=== PATIENT | male | born 1980 | race Caucasian/White ===

== ENCOUNTER 2017-01-05 08:58 | Emergency (ER) | payer OTHER ==
--- NOTE | 2017-01-05 11:43 | RAD ---
LEFT WRIST 3 VIEWS: HISTORY: A 36-year-old male with pain and swelling after a crushing injury by a cow. FINDINGS: Prominent soft tissue swelling of the wrist, particularly on the radial and volar side. No evidence for acute fracture or dislocation. No overt opaque foreign body. IMPRESSION: Soft tissue swelling without acute fracture or dislocation. POS: [facility]
== END 2017-01-05 10:08 | disposition home or self-care (01) ==
LOC: NAV ERS 08:58
DX: S50.12XA Contusion of left forearm, initial encounter (principal); X58.XXXA Exposure to other specified factors, initial encounter

== ENCOUNTER 2021-12-13 19:24 | Emergency (ER) | payer BC, OTHER, SELFPAY ==
[2021-12-13] MEDS ORDERED: Oseltamivir 75 MG CAP ONE (19:51)
== END 2021-12-13 20:58 | disposition home or self-care (01) ==
LOC: NAV ERS 19:24
DX: J11.1 Influenza due to unidentified influenza virus with other respiratory manifestations (principal)
CPT/HCPCS: 99283

== ENCOUNTER 2022-03-11 16:07 | Emergency (ER) | payer BC ==
[2022-03-11] MEDS ORDERED: Sodium Chloride 0.9% 1,000 ML ONE (16:51)
[2022-03-11 17:23] LABS: ALT (SGPT) 26 U/L (8-55); AST (SGOT) 24 U/L (5-34); Albumin 4.3 g/dL (3.5-5.0); Alkaline Phosphatase 60 U/L (40-110); Anion Gap 16 mmol/L (10-20); BUN (Urea Nitrogen) 10 mg/dL (8.9-20.6); Bilirubin, Total 1.9 mg/dL (0.2-1.2); CK (CPK) 679 U/L (30-200); Calc. Creatinine Clearance 0 mL/min (70-130); Calcium 9.4 mg/dL (7.8-10.44); Carbon Dioxide 24 mmol/L (22-29); Chloride 105 mmol/L (98-107); Globulin 2.8 g/dL (2.4-3.5); Glucose 100 mg/dL (70-105); Lipase 7 U/L (8-78); Magnesium 2.1 mg/dL (1.6-2.6); Potassium 3.6 mmol/L (3.5-5.1); Protein, Total 7.1 g/dL (6.0-8.3); Sodium 141 mmol/L (136-145)
[2022-03-11 17:27] LABS: #Basophils 0.1 thou/uL (0.0-0.2); #Eosinphils 0.1 thou/uL (0.0-0.7); #Lymphocytes 2.1 thou/uL (1.20-3.40); #Monocytes 0.6 thou/uL (0.11-0.59); #Neutrophils 12.4 thou/uL (1.40-6.50); %Basophils 0.6 % (0.0-1.0); %Eosinophils 0.8 % (0.0-10.0); %Monocytes 3.9 % (0.0-10.0); %Neutrophils 80.7 % (42.0-75.0); Mean Corpuscular HGB CONC 33.9 g/dL (32.0-36.0); Mean Corpuscular Hemoglobin 31.2 pg (27.0-31.0); Mean Platelet Volume 7.5 fL (7.4-10.4); Platelet Count 179 thou/uL (130-400); RBC Distribution Width 11.8 % (11.5-14.5); Red Blood Cell (RBC) Count 4.81 mill/uL (4.70-6.10); White Blood Cell (WBC) Count 15.3 thou/uL (4.8-10.8)
== END 2022-03-11 18:23 | disposition home or self-care (01) ==
LOC: NAV ERS 16:07
DX: R51.9 Headache, unspecified (principal); M79.10 Myalgia, unspecified site; D04.9 Carcinoma in situ of skin, unspecified
CPT/HCPCS: 70450; 80053; 82550; 83690; 83735; 84484; 85025; 87804; 93005; 96360; J7050

== ENCOUNTER 2024-05-09 23:34 | Emergency (ER) | payer BC ==
[2024-05-09] MEDS ORDERED: Boostrix 0.5 ML (Tdap) VIAL (>/=7 yrs of age) ONE (23:56)
[2024-05-09] MEDS ORDERED: Penicillin V Potassium 250 MG TAB ONE (23:56)
== END 2024-05-10 00:17 | disposition home or self-care (01) ==
LOC: NAV ERS 23:34
DX: S01.512A Laceration without foreign body of oral cavity, initial encounter (principal); Z23 Encounter for immunization; X58.XXXA Exposure to other specified factors, initial encounter
CPT/HCPCS: 90471; 90715

== ENCOUNTER 2024-07-17 15:51 | Emergency (ER) | payer BC ==
[~2024-07-17 15:51] MED LIST: Iopamidol 370 76% 100 ML VIAL ONE
[2024-07-17 16:36] LABS: #Basophils 0.1 thou/uL (0.0-0.2); #Eosinphils 0.1 thou/uL (0.0-0.7); #Lymphocytes 1.9 thou/uL (1.20-3.40); #Monocytes 0.5 thou/uL (0.11-0.59); #Neutrophils 6.1 thou/uL (1.40-6.50); %Basophils 0.7 % (0.0-1.0); %Eosinophils 1.2 % (0.0-10.0); %Lymphocytes 21.9 % (21.0-51.0); %Monocytes 5.5 % (0.0-10.0); %Neutrophils 70.7 % (42.0-75.0); Hematocrit 40.9 % (42.0-52.0); Hemoglobin 14.8 g/dL (14.0-18.0); Mean Corpuscular HGB CONC 36.1 g/dL (32.0-36.0); Mean Corpuscular Hemoglobin 32.2 pg (27.0-31.0); Mean Platelet Volume 6.7 fL (7.4-10.4); Platelet Count 196 10x3/uL (130-400); RBC Distribution Width 11.7 % (11.5-14.5); White Blood Cell (WBC) Count 8.6 10x3/uL (4.8-10.8)
[2024-07-17 16:40] LABS: Prothrombin Time 13.3 sec (12.0-14.7)
[2024-07-17 16:41] LABS: PTT 32.4 sec (22.9-36.1)
[2024-07-17 16:46] LABS: ALT (SGPT) 27 U/L (8-55); AST (SGOT) 19 U/L (5-34); Albumin 4.2 g/dL (3.5-5.0); Alkaline Phosphatase 66 U/L (40-110); Anion Gap 17 mmol/L (10-20); BUN (Urea Nitrogen) 9 mg/dL (8.9-20.6); Bilirubin, Total 1.1 mg/dL (0.2-1.2); Calc. Creatinine Clearance 0 mL/min (70-130); Calcium 9.7 mg/dL (7.8-10.44); Carbon Dioxide 21 mmol/L (22-29); Chloride 109 mmol/L (98-107); Estimated GFR 101; Globulin 2.8 g/dL (2.4-3.5); Glucose 145 mg/dL (70-105); Potassium 3.5 mmol/L (3.5-5.1); Sodium 143 mmol/L (136-145)
[2024-07-17] MEDS ORDERED: Sodium Chloride 0.9% 1,000 ML ONE ×2 (17:02→17:48)
[2024-07-17 17:33] LABS: Bilirubin Negative (Negative); Blood, Urine Negative (Negative); Clarity Clear (Clear); Glucose, Urine (Dipstick) Negative (Negative); Ketone, Urine Negative (Negative); Leukocyte Negative (Negative); Nitrite Negative (Negative); Protein, Urine (Dipstick) Negative (Neg-Trace); Specific Gravity, Urine 1.015 (1.005-1.030); Urobilinogen 0.2 mg/dL (Less than 2); pH, Urine 6.5 (5.0-9.0)
[2024-07-17 17:49] LABS: Bacteria/HPF Rare-Few HPF (None Seen); Mucous/LPF Rare LPF (<2+); RBC/HPF 0-3 HPF (0-3); Transitional Epithelial 0-3 HPF (None Seen); WBC/HPF 0-3 HPF (0-3)
[2024-07-17 17:50] LABS: Calcium Oxalate Crystals Rare HPF (None Seen); Squamous Epithelial 0-3 HPF (0-3)
[2024-07-17] MEDS ORDERED: Acetaminophen 325 MG TAB ONE (18:06)
== END 2024-07-17 19:55 | disposition home or self-care (01) ==
LOC: NAV ERS 15:51
DX: S06.0X0A Concussion without loss of consciousness, initial encounter (principal); S93.402A Sprain of unspecified ligament of left ankle, initial encounter; S20.211A Contusion of right front wall of thorax, initial encounter; S40.211A Abrasion of right shoulder, initial encounter; H00.014 Hordeolum externum left upper eyelid; M77.52 Other enthesopathy of left foot and ankle; Z79.899 Other long term (current) drug therapy; W11.XXXA Fall on and from ladder, initial encounter
CPT/HCPCS: 70450; 71260; 72125; 74177; 80053; 81001; 83605; 85025; 85610; 85730; J7030; Q9967